=== PATIENT | male | born 1980 | race Caucasian/White ===

== ENCOUNTER 2021-03-05 17:32 | Emergency (ER) | payer OTHER ==
[2021-03-05] MEDS ORDERED: ENDOCET 5-3251 EACH PO (18:43)
== END 2021-03-05 19:02 | disposition home or self-care (01) ==
LOC: FER 17:32
DX: S46.001A Unspecified injury of muscle(s) and tendon(s) of the rotator cuff of right shoulder, initial encounter (principal); Z88.1 Allergy status to other antibiotic agents; X58.XXXA Exposure to other specified factors, initial encounter; Y92.009 Unspecified place in unspecified non-institutional (private) residence as the place of occurrence of the external cause
CPT/HCPCS: J1170

== ENCOUNTER 2021-05-25 06:59 | Emergency (ER) | payer OTHER ==
[~2021-05-25 06:59] MED LIST: ENDOCET 5-3251 EACH PO
[2021-05-25 08:43] LABS: BASOPHIL 0.7 % (0-2); EOSINOPHIL 1.3 % (0-5); HCT 46.7 % (42.0-52.0); HGB 15.7 g/dl (13.2-18.0); MCH 30.3 pg (25.0-31.0); MCHC 33.6 g/dL (32.0-36.0); MCV 90.2 fL (78.0-100.0); MONOCYTE 18.7 % (0-12); MPV 10.1 fL (6.0-9.5); NRBC 0; PLT 229 K/uL (150-400); RBC 5.18 M/uL (4.70-6.00); RDW 12.6 % (11.5-14.0); WBC 6.1 K/uL (4.0-10.5)
[2021-05-25 09:02] LABS: ALBUMIN 4.5 g/dL (3.4-5.0); BILIRUBIN - TOTAL 0.4 mg/dL (0.2-1.0); GLOBULIN (CALCULATION) 3.2 g/dL; POTASSIUM 4.4 mmol/L (3.5-5.1); TOTAL PROTEIN 7.7 g/dL (6.4-8.2)
[2021-05-25 09:07] LABS: BILIRUBIN NEGATIVE (NEGATIVE); BLOOD NEGATIVE Ery/uL (NEGATIVE); CLARITY CLEAR (CLEAR); COLOR YELLOW (YELLOW); GLUCOSE (U) NORMAL (NORMAL); LEUKOCYTES NEGATIVE Leu/uL (NEGATIVE); NITRITE NEGATIVE (NEGATIVE); PROTEIN NEGATIVE (NEGATIVE); SPECIFIC GRAVITY 1.025 (1.001-1.030); UROBILINOGEN 0.2 mg/dL (0.2-1.0); pH 6.5 (5.0-9.0)
[2021-05-25 09:09] LABS: AMPHETAMINES NEGATIVE (NEGATIVE); BARBITURATES NEGATIVE (NEGATIVE); ECSTASY (MDMA) NEGATIVE (NEGATIVE); METHADONE NEGATIVE (NEGATIVE); OPIATES NEGATIVE (NEGATIVE); OXYCODONE NEGATIVE (NEGATIVE)
[2021-05-25 09:11] LABS: MARIJUANA (THC) POSITIVE (NEGATIVE)
[2021-05-25 12:24] LABS: BUN/CREAT RATIO (CALC) 10.9 RATIO; CREATININE 1.1 mg/dL (0.67-1.17)
== END 2021-05-25 10:16 | disposition home or self-care (01) ==
LOC: FER 06:59
PROVIDERS: Internal Medicine
DX: I86.1 Scrotal varices (principal); N43.3 Hydrocele, unspecified; Z88.1 Allergy status to other antibiotic agents
CPT/HCPCS: 36415; 76870; 80053; 80305; 81003; 83690; 85025